=== PATIENT | male | born 1995 | race Two or more races ===

== ENCOUNTER 2016-11-11 08:00 | Outpatient (CLI) | payer OTHER | END 2016-11-11 08:01 | disposition home or self-care (01) | DX: F31.2 Bipolar disorder, current episode manic severe with psychotic features (principal); F41.9 Anxiety disorder, unspecified; G47.00 Insomnia, unspecified; E55.9 Vitamin D deficiency, unspecified ==

== ENCOUNTER 2017-04-21 10:15 | Outpatient (CLI) | payer OTHER ==
[2017-04-21 14:12] LABS: BASOPHILS # (AUTO) 0.1 10^3/uL (0.0-0.1); BASOPHILS % (AUTO) 0.6 %; EOSINOPHILS # (AUTO) 0.1 10^3/uL (0.0-0.7); EOSINOPHILS % (AUTO) 1.4 %; HCT - HEMATOCRIT 45.1 % (42.0-52.0); HGB - HEMOGLOBIN 15.5 g/dL (14.0-18.0); LYMPHOCYTES # (AUTO) 2.8 10^3/uL (1.5-3.5); LYMPHOCYTES % (AUTO) 28.9 %; MEAN CORPUSCULAR HEMOGLOBIN 30.3 pg (27.0-31.0); MEAN CORPUSCULAR HGB CONC 34.3 g/dL (32.0-36.0); MEAN CORPUSCULAR VOLUME 88.3 fL (80.0-94.0); MONOCYTES # (AUTO) 0.5 10^3/uL (0.0-1.0); MONOCYTES % (AUTO) 5.4 %; NEUTROPHILS # (AUTO) 6.1 10^3/uL (1.5-6.6); NEUTROPHILS % (AUTO) 63.7 %; NUCLEATED RED BLOOD CELLS AUTO 0.1 /100WBC; RED CELL DISTRIBUTION WIDTH 12.4 % (12.0-15.0); UNCORRECTED WHITE BLOOD COUNT 9.5 x10^3/uL; WHITE BLOOD COUNT 9.5 x10^3/uL (4.8-10.8)
[2017-04-21 14:32] LABS: THYROID STIMULATING HORMONE 2.43 uIU/mL (0.34-5.60)
[2017-04-21 14:56] LABS: BILIRUBIN,TOTAL 0.5 mg/dL (0.2-1.0); BUN - BLOOD UREA NITROGEN 9 mg/dL (6-20); CALCIUM 9.6 mg/dL (8.5-10.3); CARBON DIOXIDE - CO2 29 mmol/L (21-32); CHLORIDE 99 mmol/L (101-111); CHOL/HDL RATIO 4.7 (<5.0); CHOLESTEROL 215 mg/dL; CREATININE 0.9 mg/dL (0.6-1.2); GFR - MDRD 107 (>89); GLUCOSE 110 mg/dL (70-100); HDL CHOLESTEROL 46 mg/dL; LDL/HDL RATIO 2.5 (<3.6); POTASSIUM 4.1 mmol/L (3.5-5.0); SODIUM 138 mmol/L (135-145); TOTAL PROTEIN 8.7 g/dL (6.7-8.2); TRIGLYCERIDES 260 mg/dL; VLDL CHOLESTEROL 52 mg/dL
== END 2017-04-21 10:16 | disposition home or self-care (01) ==
LOC: LAB.WCP 10:15
PROVIDERS: ATTEND Psychiatry & Neurology Psychiatry
DX: F31.2 Bipolar disorder, current episode manic severe with psychotic features (principal); F41.9 Anxiety disorder, unspecified; G47.00 Insomnia, unspecified
CPT/HCPCS: 36415; 80050; 80061; 80164; 84439

== ENCOUNTER 2017-11-04 09:47 | Outpatient (CLI) | payer MEDICAID, OTHER ==
[2017-11-04 13:21] LABS: ALBUMIN 4.3 g/dL (3.2-5.5); ALBUMIN/GLOBULIN RATIO 1.1 (1.0-2.2); ALKALINE PHOSPHATASE 50 IU/L (42-121); ALT ALANINE AMINOTRANSFERASE 31 IU/L (10-60); AST ASPARTATE AMINOTRANSFERASE 31 IU/L (10-42); BILIRUBIN,TOTAL 0.5 mg/dL (0.2-1.0); BUN - BLOOD UREA NITROGEN 7 mg/dL (6-20); CALCIUM 9.1 mg/dL (8.5-10.3); CARBON DIOXIDE - CO2 28 mmol/L (21-32); CHLORIDE 100 mmol/L (101-111); GFR - MDRD 94 (>89); GLUCOSE 102 mg/dL (70-100); SODIUM 136 mmol/L (135-145); TOTAL PROTEIN 8.3 g/dL (6.7-8.2); VALPROIC ACID (DEPAKOTE) 53.8 ug/mL
[2017-11-04 13:31] LABS: HB2 TOTAL 16.3 g/dL; HEMOGLOBIN A1C 0.56 g/dL; HEMOGLOBIN A1C % 5.3 % (4.6-6.2)
== END 2017-11-04 09:48 | disposition home or self-care (01) ==
LOC: LAB.WCP 09:47
PROVIDERS: ATTEND Psychiatry & Neurology Psychiatry
DX: F31.9 Bipolar disorder, unspecified (principal); F41.9 Anxiety disorder, unspecified; G47.00 Insomnia, unspecified
CPT/HCPCS: 36415; 80053; 80164; 83036

== ENCOUNTER 2018-03-25 19:40 | Emergency (ER) | payer MEDICAID ==
[2018-03-25 19:52] LABS: MUDS CUTOFF CONCENTRATIONS CUTOFF CONC BELOW:
[2018-03-25 19:58] LABS: BILIRUBIN,URINE NEGATIVE (NEGATIVE); GLUCOSE, URINE (UA) NEGATIVE (NEGATIVE); KETONES,URINE (UA) NEGATIVE (NEGATIVE); LEUKOCYTE ESTERASE, URINE NEGATIVE (NEGATIVE); NITRITE,URINE NEGATIVE (NEGATIVE); OCCULT BLOOD,URINE NEGATIVE (NEGATIVE); PROTEIN,URINE 30 mg/dL (NEGATIVE); UROBILINOGEN,URINE 0.2 (NORMAL) E.U./dL (NORMAL)
[2018-03-25 20:01] LABS: CLARITY,URINE CLEAR (CLEAR)
[2018-03-25 20:09] LABS: BACTERIA,URINE None Seen /HPF (None Seen); MUCUS,URINE Marked Strands; RBC,URINE None Seen /HPF (0-5); SQUAMOUS EPITHELIAL CELL,UR NONE SEEN (<= Few)
[2018-03-25 20:10] LABS: AMPHETAMINE SCREEN,URINE NEGATIVE (NEGATIVE); BENZODIAZEPINES SCREEN, URINE NEGATIVE (NEGATIVE); COCAINE SCREEN URINE NEGATIVE (NEGATIVE); METHADONE SCREEN, URINE NEGATIVE (NEGATIVE); METHAMPHETAMINES SCREEN, URINE NEGATIVE (NEGATIVE); OPIATE SCREEN, URINE NEGATIVE (NEGATIVE); OXYCODONE SCREEN, URINE NEGATIVE (NEGATIVE); PROPOXYPHENE SCREEN, URINE NEGATIVE (NEGATIVE); TRICYCLIC ANTIDEPRESSANT,URINE NEGATIVE (NEGATIVE)
[2018-03-25 20:34] LABS: ALBUMIN 4.2 g/dL (3.2-5.5); ALBUMIN/GLOBULIN RATIO 1.1 (1.0-2.2); ALKALINE PHOSPHATASE 54 IU/L (42-121); ALT ALANINE AMINOTRANSFERASE 42 IU/L (10-60); AST ASPARTATE AMINOTRANSFERASE 57 IU/L (10-42); BILIRUBIN,TOTAL 0.5 mg/dL (0.2-1.0); BUN - BLOOD UREA NITROGEN 16 mg/dL (6-20); CALCIUM 9.4 mg/dL (8.5-10.3); CARBON DIOXIDE - CO2 23 mmol/L (21-32); CHLORIDE 106 mmol/L (101-111); CREATININE 0.9 mg/dL (0.6-1.2); GFR - MDRD 106 (>89); GLUCOSE 98 mg/dL (70-100); LIPASE 83 U/L (22-51); SALICYLATE < 6.0 mg/dL; SODIUM 140 mmol/L (135-145); TOTAL PROTEIN 8.2 g/dL (6.7-8.2)
[2018-03-25 20:43] LABS: ACETAMINOPHEN < 10 ug/mL (10-30)
--- NOTE | 2018-03-25 20:49 | ED Physician Documentation ---
PD HPI MHE - Stated complaint Stated Complaint: EVAL - Chief complaint Chief Complaint: MHE - History obtained from History obtained from: Police - History of Present Illness Primary symptom: Psychosis, Off meds, Medical clearance Timing - onset: Chronic Similar symptoms before: Work up / diagnostics, Treatment Recently seen: Not recently seen - Additional information Additional information: Patient is a 22 year old male with a history of multiple medical conditions including bipolar, ocd, adhd, diabetes who was brought in by the assisted for a medical clearance for inpatient placement. Patient denied any physical complaints at this time. Review of Systems Unable to obtain: Uncooperative PD PAST MEDICAL HISTORY - Past Medical History Cardiovascular: High cholesterol Respiratory: None Endocrine/Autoimmune: None GI: None : None HEENT: None Psych: Depression, Anxiety, Bipolar disorder, Panic attacks, ADD/ADHD, Obsessive compulsive disorder Musculoskeletal: None Derm: None - Past Surgical History Past Surgical History: No - Present Medications Home Medications: Ambulatory Orders Medication Instructions Recorded Confirmed Divalproex Sodium [Depakote ER] 250 mg PO DAILY 03/06/15 03/10/15 Zolpidem [Ambien] 5 mg ORAL PRN 03/10/15 03/10/15 - Allergies Allergies/Adverse Reactions: Allergies Allergy/AdvReac Type Severity Reaction Status Date / Time amoxicillin [Amoxicillin] Allergy Severe Respiratory Verified 03/10/15 18:38 - Social History Does the pt smoke?: No Smoking Status: Never smoker Does the pt drink ETOH?: No Does the pt have substance abuse?: No - Immunizations Immunizations are current?: Yes - POLST Patient has POLST: No PD ED PE NORMAL - Vitals Vital signs reviewed: Yes - General General: No acute distress, Well developed/nourished - HEENT HEENT: Atraumatic, PERRL - Cardiac Cardiac: RRR - Respiratory Respiratory: No respiratory distress - Abdomen Abdomen: Soft - Derm Derm: Normal color, Warm and dry - Extremities Extremities: No deformity - Neuro Neuro: No motor deficit, Normal speech Eye Opening: Spontaneous PD ED PE EXPANDED - Psych Psych: Agitated, Combative, Pressured speech Results - Vitals Vitals: Vital Signs - 24 hr 03/25/18 03/25/18 03/26/18 19:50 22:19 01:27 Temperature 36.4 C L 36.9 C 36.5 C Heart Rate 113 H 96 88 Respiratory 20 16 20 Rate Blood Pressure 125/86 H 122/62 143/74 H O2 Saturation 95 97 95 Oxygen O2 Source Room air - EKG (time done) 2019 Rate: Rate (enter#) (105) Rhythm: Sinus tachycardia [place]: Normal Ischemia: ST elevation c/w repol Compare to prior EKG: Old EKG unavailable - Labs Labs: Laboratory Tests 03/25/18 03/25/18 03/25/18 19:51 20:13 22:18 WBC 10.8 RBC 4.63 L Hgb 14.0 Hct 41.6 L MCV 90.0 MCH 30.2 MCHC 33.6 RDW 13.0 Plt Count 293 MPV 6.9 L Neut # (Auto) 7.4 H Lymph # (Auto) 2.2 [place] # (Auto) 0.9 Eos # (Auto) 0.2 Baso # (Auto) 0.1 Absolute Nucleated RBC 0.00 Nucleated RBC % 0.0 Sodium 140 Potassium 3.8 Chloride 106 Carbon Dioxide 23 Anion Gap 11.0 BUN 16 Creatinine 0.9 Estimated GFR (MDRD) 106 Glucose 98 Calcium 9.4 Total Bilirubin 0.5 AST 57 H ALT 42 Alkaline Phosphatase 54 Total Protein 8.2 Albumin 4.2 Globulin 4.0 Albumin/Globulin Ratio 1.1 Lipase 83 H Urine Color YELLOW Urine Clarity CLEAR Urine pH 6.0 Ur Specific [place] 1.025 Urine Protein 30 H Urine Glucose (UA) NEGATIVE Urine Ketones NEGATIVE Urine Occult Blood NEGATIVE Urine Nitrite NEGATIVE Urine Bilirubin NEGATIVE Urine Urobilinogen 0.2 (NORMAL) Ur Leukocyte Esterase NEGATIVE Urine RBC None Seen Urine WBC 0-3 Ur Squamous Epith Cells NONE SEEN Urine Bacteria None Seen Urine Mucus Marked Strands Ur Microscopic Review INDICATED Urine Culture Comments NOT INDICATED Salicylates < 6.0 Urine Opiates Screen NEGATIVE Ur Oxycodone Screen NEGATIVE Urine Methadone Screen NEGATIVE Ur Propoxyphene Screen NEGATIVE Acetaminophen < 10 L Ur Barbiturates Screen NEGATIVE Ur Tricyclics Screen NEGATIVE Ur Phencyclidine Scrn NEGATIVE Ur Amphetamine Screen NEGATIVE U Methamphetamines Scrn NEGATIVE U Benzodiazepines Scrn NEGATIVE Urine Cocaine Screen NEGATIVE U Cannabinoids Screen NEGATIVE Ethyl Alcohol < 5.0 PD MEDICAL DECISION MAKING - ED course Complexity details: reviewed old records, reviewed results, re-evaluated patient , considered differential ED course: patient was seen and examined at bedside. labs were drawn and ekg was performed. ekg was consistent with benign early repol with no concerning abnormalities. patient's blood work was within normal limits. Patient was medically clear for inpatient psychiatry. while awaiting placement and transfer patient became agitated and required sedation with zyprexa as he was a risk to himself and others. Patient was accepted by [facility] and arrangements were made for transfer. The zyprexa helped the patient for awhile but his agitation returned and patient was treated with additional haldol, and eventually with ativan for the transfer. patient was transferred in stable condition. - Sepsis Event Vital Signs: Vital Signs - 24 hr 03/25/18 03/25/18 03/26/18 19:50 22:19 01:27 Temperature 36.4 C L 36.9 C 36.5 C Heart Rate 113 H 96 88 Respiratory 20 16 20 Rate Blood Pressure 125/86 H 122/62 143/74 H O2 Saturation 95 97 95 Oxygen O2 Source Room air Departure - Departure Disposition: 65 Psych Hosp/Unit DC/Xfer Clinical Impression: Psychosis, Bipolar disorder Condition: Stable
[2018-03-25] MEDS ORDERED: OLANZapine 10 MG VIAL IM STA (21:28)
[2018-03-25 22:21] LABS: BASOPHILS # (AUTO) 0.1 10^3/uL (0.0-0.1); BASOPHILS % (AUTO) 0.9 %; EOSINOPHILS # (AUTO) 0.2 10^3/uL (0.0-0.7); EOSINOPHILS % (AUTO) 1.7 %; LYMPHOCYTES # (AUTO) 2.2 10^3/uL (1.5-3.5); LYMPHOCYTES % (AUTO) 20.5 %; MEAN CORPUSCULAR HEMOGLOBIN 30.2 pg (27.0-31.0); MEAN CORPUSCULAR HGB CONC 33.6 g/dL (32.0-36.0); MEAN PLATELET VOLUME 6.9 fL (7.4-11.4); MONOCYTES # (AUTO) 0.9 10^3/uL (0.0-1.0); NEUTROPHILS # (AUTO) 7.4 10^3/uL (1.5-6.6); NEUTROPHILS % (AUTO) 68.9 %; PLT - PLATELET COUNT 293 10^3/uL (130-450); RED BLOOD COUNT 4.63 10^6/uL (4.70-6.10); WHITE BLOOD COUNT 10.8 x10^3/uL (4.8-10.8)
[2018-03-25] MEDS ORDERED: HALOPERIDOL 5 MG/ML VIAL IM STA (23:33)
[2018-03-26 01:28] VITALS: BP 143/74
[2018-03-26] MEDS ORDERED: LORazepam 0.5 MG TABLET PO STA (01:48)
== END 2018-03-26 02:31 ==
LOC: ED 19:40
DX: F29 Unspecified psychosis not due to a substance or known physiological condition (principal); F31.9 Bipolar disorder, unspecified; Z91.14 Patient's other noncompliance with medication regimen; R45.1 Restlessness and agitation; R00.0 Tachycardia, unspecified
CPT/HCPCS: 36415; 80053; 80306; 80307; 80320; 80329; 81001; 83690; 85025; 96372; 99283; 99284; A9270; 81003; 87086

== ENCOUNTER 2018-04-17 08:00 | Outpatient (CLI) | payer MEDICAID ==
[2018-04-17 12:49] LABS: BASOPHILS % (AUTO) 0.4 %; EOSINOPHILS # (AUTO) 0.3 10^3/uL (0.0-0.7); EOSINOPHILS % (AUTO) 4.1 %; HGB - HEMOGLOBIN 14.3 g/dL (14.0-18.0); LYMPHOCYTES # (AUTO) 2.6 10^3/uL (1.5-3.5); LYMPHOCYTES % (AUTO) 31.6 %; MEAN CORPUSCULAR HEMOGLOBIN 30.7 pg (27.0-31.0); MEAN CORPUSCULAR HGB CONC 33.8 g/dL (32.0-36.0); MEAN CORPUSCULAR VOLUME 90.6 fL (80.0-94.0); MEAN PLATELET VOLUME 8.2 fL (7.4-11.4); MONOCYTES # (AUTO) 0.6 10^3/uL (0.0-1.0); MONOCYTES % (AUTO) 7.7 %; NEUTROPHILS # (AUTO) 4.6 10^3/uL (1.5-6.6); NEUTROPHILS % (AUTO) 56.2 %; PLT - PLATELET COUNT 306 10^3/uL (130-450); RED BLOOD COUNT 4.67 10^6/uL (4.70-6.10); RED CELL DISTRIBUTION WIDTH 13.1 % (12.0-15.0); WHITE BLOOD COUNT 8.1 x10^3/uL (4.8-10.8)
[2018-04-17 13:15] LABS: ALBUMIN 3.7 g/dL (3.2-5.5); ALBUMIN/GLOBULIN RATIO 1.1 (1.0-2.2); ALKALINE PHOSPHATASE 52 IU/L (42-121); ALT ALANINE AMINOTRANSFERASE 32 IU/L (10-60); AST ASPARTATE AMINOTRANSFERASE 29 IU/L (10-42); BILIRUBIN,TOTAL 0.6 mg/dL (0.2-1.0); BUN - BLOOD UREA NITROGEN 8 mg/dL (6-20); CALCIUM 8.7 mg/dL (8.5-10.3); CARBON DIOXIDE - CO2 29 mmol/L (21-32); CHLORIDE 100 mmol/L (101-111); CHOL/HDL RATIO 3.4 (<5.0); CHOLESTEROL 188 mg/dL; CREATININE 0.8 mg/dL (0.6-1.2); GFR - MDRD 121 (>89); GLUCOSE 99 mg/dL (70-100); HDL CHOLESTEROL 56 mg/dL; LDL CHOLESTEROL,CALCULATED 113 mg/dL; SODIUM 137 mmol/L (135-145); TOTAL PROTEIN 7.1 g/dL (6.7-8.2); VLDL CHOLESTEROL 19 mg/dL
== END 2018-04-17 08:01 | disposition home or self-care (01) ==
LOC: LAB.N 08:00
PROVIDERS: ATTEND Physician Assistant Medical
DX: E78.70 Disorder of bile acid and cholesterol metabolism, unspecified (principal); F31.10 Bipolar disorder, current episode manic without psychotic features, unspecified
CPT/HCPCS: 36415; 80053; 80061; 83721; 84443; 85025

== ENCOUNTER 2020-08-01 08:00 | Outpatient (CLI) | payer MEDICAID ==
[2020-08-01 12:38] LABS: BASOPHILS # (AUTO) 0.1 10^3/uL (0.0-0.1); BASOPHILS % (AUTO) 0.6 %; EOSINOPHILS # (AUTO) 0.3 10^3/uL (0.0-0.7); HGB - HEMOGLOBIN 15.5 g/dL (14.0-18.0); LYMPHOCYTES # (AUTO) 3.5 10^3/uL (1.5-3.5); LYMPHOCYTES % (AUTO) 40.9 %; MEAN CORPUSCULAR HEMOGLOBIN 29.2 pg (27.0-31.0); MEAN CORPUSCULAR HGB CONC 33.3 g/dL (32.0-36.0); MEAN CORPUSCULAR VOLUME 87.7 fL (80.0-94.0); MEAN PLATELET VOLUME 10.3 fL (7.4-11.4); MONOCYTES # (AUTO) 0.6 10^3/uL (0.0-1.0); MONOCYTES % (AUTO) 6.5 %; NEUTROPHILS # (AUTO) 4.1 10^3/uL (1.5-6.6); NEUTROPHILS % (AUTO) 48.5 %; PLT - PLATELET COUNT 293 10^3/uL (130-450); RED CELL DISTRIBUTION WIDTH 11.9 % (12.0-15.0); WHITE BLOOD COUNT 8.4 x10^3/uL (4.8-10.8)
[2020-08-01 13:48] LABS: ALBUMIN/GLOBULIN RATIO 0.9 (1.0-2.2); ALKALINE PHOSPHATASE 69 IU/L (42-121); ALT ALANINE AMINOTRANSFERASE 46 IU/L (10-60); AST ASPARTATE AMINOTRANSFERASE 31 IU/L (10-42); BILIRUBIN,TOTAL 0.6 mg/dL (0.2-1.0); BUN - BLOOD UREA NITROGEN 7 mg/dL (6-20); CALCIUM 9.5 mg/dL (8.5-10.3); CARBON DIOXIDE - CO2 25 mmol/L (21-32); CHLORIDE 98 mmol/L (101-111); CHOL/HDL RATIO 6.4 (<5.0); CHOLESTEROL 289 mg/dL; CREATININE 0.7 mg/dL (0.6-1.2); GLUCOSE 269 mg/dL (70-100); HDL CHOLESTEROL 45 mg/dL; TOTAL PROTEIN 8.4 g/dL (6.7-8.2); VALPROIC ACID (DEPAKOTE) 57.3 ug/mL
[2020-08-01 15:17] LABS: LDL CHOLESTEROL,DIRECT 184 mg/dL; LDLD/HDL RATIO 4.1 (<3.6)
== END 2020-08-01 23:59 ==
LOC: LAB.WCP 08:00
PROVIDERS: ATTEND Psychiatry & Neurology Psychiatry
DX: F31.2 Bipolar disorder, current episode manic severe with psychotic features (principal)
CPT/HCPCS: 36415; 80053; 80061; 80164; 83721; 85025

== ENCOUNTER 2023-11-09 23:41 | Outpatient (CLI) | payer MEDICAID, OTHER | END 2023-11-09 23:42 | disposition short-term general hospital (02) | LOC: EMS 23:41 | DX: S09.90XA Unspecified injury of head, initial encounter (principal); V48.5XXA Car driver injured in noncollision transport accident in traffic accident, initial encounter; Y93.89 Activity, other specified; Y92.410 Unspecified street and highway as the place of occurrence of the external cause | CPT/HCPCS: A0425; A0429 ==

== ENCOUNTER 2023-11-11 16:28 | Emergency (ER) | payer MEDICAID ==
--- NOTE | 2023-11-11 16:39 | ED Physician Documentation ---
PD HPI MHE - Stated complaint Stated Complaint: SI - History obtained from History obtained from: Police - Additional information Additional information: 27-year-old gentleman with mental health history is brought in by [employer] deputies. He was booked last night and has been psychotic in [facility] today. He was released by the director of [facility] today for a DCR evaluation and the DCR brought him here on an LUISA for medical clearance. Of note it sounds like he was at [facility] yesterday and had mild rhabdomyolysis. Patient is unable to give any history to me on initial evaluation, just yelling, agitated, trying to hit staff, and stating "they are going to kill me." PD PAST MEDICAL HISTORY - Past Medical History Cardiovascular: High cholesterol Respiratory: None Endocrine/Autoimmune: None GI: None : None HEENT: None Psych: Depression, Anxiety, Bipolar disorder, Panic attacks, ADD/ADHD, Obsessive compulsive disorder Musculoskeletal: None Derm: None - Past Surgical History Past Surgical History: No - Present Medications Home Medications: Ambulatory Orders Medication Instructions Recorded Confirmed Divalproex Sodium [Depakote ER] 250 mg PO DAILY 03/06/15 03/10/15 Zolpidem [Ambien] 5 mg ORAL PRN 03/10/15 03/10/15 - Allergies Allergies/Adverse Reactions: Allergies Allergy/AdvReac Type Severity Reaction Status Date / Time amoxicillin [Amoxicillin] Allergy Severe Respiratory Verified 11/11/23 16:35 - Social History Does the pt smoke?: No Smoking Status: Never smoker Does the pt drink ETOH?: No Does the pt have substance abuse?: No - Immunizations Immunizations are current?: Yes - POLST Patient has POLST: No PD ED PE NORMAL - Vitals Vital signs reviewed: Yes - General General: Other (Orientation is unclear, he is agitated and aggressive trying to hit staff. Multiple [employer] deputies are required to help with restraint.) - Cardiac Cardiac: RRR, No murmur - Respiratory Respiratory: No respiratory distress, Clear bilaterally - Abdomen Abdomen: Non tender Results - Vitals Vitals: Vital Signs - 24 hr 11/11/23 11/11/23 11/11/23 16:35 16:41 16:52 Temperature 36.6 C 36.8 C Heart Rate 123 H 123 H 115 H Respiratory 18 18 17 Rate Blood Pressure 165/116 H 165/116 H 158/108 H O2 Saturation 98 98 96 If not protocol : Oxygen Flow, liters/minute 11/11/23 11/11/23 11/11/23 17:05 17:20 17:35 Temperature Heart Rate 119 H 104 H 104 H Respiratory 20 18 18 Rate Blood Pressure 157/111 H 128/84 H 109/63 O2 Saturation 96 93 93 If not protocol 96 : Oxygen Flow, liters/minute 11/11/23 11/11/23 11/11/23 17:45 18:15 20:15 Temperature 36.8 C Heart Rate 100 102 H 96 Respiratory 19 19 18 Rate Blood Pressure 127/87 H 111/70 111/68 O2 Saturation 92 92 94 If not protocol : Oxygen Flow, liters/minute 11/11/23 11/11/23 11/11/23 21:22 21:34 21:48 Temperature Heart Rate 100 111 H 94 Respiratory 18 18 18 Rate Blood Pressure 134/90 H 176/117 H 165/112 H O2 Saturation 100 100 97 If not protocol : Oxygen Flow, liters/minute 11/11/23 22:16 Temperature Heart Rate 94 Respiratory 18 Rate Blood Pressure 146/100 H O2 Saturation 97 If not protocol : Oxygen Flow, liters/minute Oxygen O2 Source Room air - EKG (time done) 1716 EKG releavant findings:: EKG personally interpreted by author of this note. Relevant findings are: Rate: Rate (enter#) (107) Rhythm: NSR Intervals: Normal [place]. No: Prolonged QT QRS: Normal Ischemia: Normal ST segments - Labs Labs: Laboratory Tests 11/11/23 11/11/23 11/11/23 16:57 16:57 16:57 WBC 9.9 RBC 5.16 Hgb 14.8 Hct 46.0 MCV 89.1 MCH 28.7 MCHC 32.2 RDW 11.9 L Plt Count 311 MPV 9.7 Neut # (Auto) 6.6 Lymph # (Auto) 2.4 [place] # (Auto) 0.8 Eos # (Auto) 0.1 Baso # (Auto) 0.1 Absolute Nucleated RBC 0.00 Nucleated RBC % 0.0 Sodium 141 Potassium 3.5 Chloride 102 Carbon Dioxide 21 Anion Gap 18.0 H BUN 10 Creatinine 0.9 Estimated GFR (MDRD) 101 Glucose 342 H Calcium 9.7 Magnesium 1.8 Total Bilirubin 0.6 AST 32 ALT 26 Alkaline Phosphatase 64 Total Creatine Kinase 2665 H* Total Protein 7.9 Albumin 4.2 Globulin 3.7 Albumin/Globulin Ratio 1.1 Lipase 27 TSH 1.55 Urine Color Urine Clarity Urine pH Ur Specific [place] Urine Protein Urine Glucose (UA) Urine Ketones Urine Occult Blood Urine Nitrite Urine Bilirubin Urine Urobilinogen Ur Leukocyte Esterase Urine RBC Urine WBC Ur Squamous Epith Cells Urine Bacteria Urine Casts Ur Microscopic Review Urine Culture Comments Last Dose Date UNKNOWN Last Dose Time UNKNOWN Salicylates < 1.5 Urine Opiates Screen Ur Buprenorphine Scrn Ur Oxycodone Screen Urine Methadone Screen Acetaminophen 0.1 Ur Barbiturates Screen Valproic Acid 39.4 Ur Tricyclics Screen Ur Phencyclidine Scrn Ur Amphetamine Screen U Methamphetamines Scrn U Benzodiazepines Scrn Urine Cocaine Screen U Cannabinoids Screen Ur Drug Screen Comment Ethyl Alcohol < 10.0 SARS-CoV-2 (PCR) 11/11/23 11/11/23 17:11 17:11 WBC RBC Hgb Hct MCV MCH MCHC RDW Plt Count MPV Neut # (Auto) Lymph # (Auto) [place] # (Auto) Eos # (Auto) Baso # (Auto) Absolute Nucleated RBC Nucleated RBC % Sodium Potassium Chloride Carbon Dioxide Anion Gap BUN Creatinine Estimated GFR (MDRD) Glucose Calcium Magnesium Total Bilirubin AST ALT Alkaline Phosphatase Total Creatine Kinase Total Protein Albumin Globulin Albumin/Globulin Ratio Lipase TSH Urine Color YELLOW Urine Clarity CLEAR Urine pH 6.0 Ur Specific [place] 1.020 Urine Protein 100 H Urine Glucose (UA) >=1000 H Urine Ketones 15 H Urine Occult Blood TRACE-INTA Urine Nitrite NEGATIVE Urine Bilirubin NEGATIVE Urine Urobilinogen 0.2 (NORMAL) Ur Leukocyte Esterase NEGATIVE Urine RBC None Seen Urine WBC 0-3 Ur Squamous Epith Cells RARE Squamous Urine Bacteria Few Urine Casts 0-2 Hyaline Casts Ur Microscopic Review INDICATED Urine Culture Comments NOT INDICATED Last Dose Date Last Dose Time Salicylates Urine Opiates Screen NEGATIVE Ur Buprenorphine Scrn NEGATIVE Ur Oxycodone Screen NEGATIVE Urine Methadone Screen NEGATIVE Acetaminophen Ur Barbiturates Screen NEGATIVE Valproic Acid Ur Tricyclics Screen NEGATIVE Ur Phencyclidine Scrn NEGATIVE Ur Amphetamine Screen NEGATIVE U Methamphetamines Scrn NEGATIVE U Benzodiazepines Scrn POSITIVE H Urine Cocaine Screen NEGATIVE U Cannabinoids Screen NEGATIVE Ur Drug Screen Comment CUTOFF CONC BELOW: Ethyl Alcohol SARS-CoV-2 (PCR) NOT DETECTED PD Medical Decision Making - ED course ED course: 27-year-old gentleman presents with psychosis and dangerous behavior. He did require both physical and chemical restraint after arrival. After which she was calm and cooperative. Workup in the emergency department demonstrates mild rhabdomyolysis, normal CBC, negative toxicology testing except for positive benzodiazepines and negative COVID testing. Seen by DCR Clara who would detain him, but despite the relatively low level of his CK no psychiatric facility will consider him at this time so he is boarding in the emergency department after DCR walk away with plan to trend his CK levels and redispatch. Given the need to get his relatively low CK down for an appropriate disposition, we did order an IV and IV fluids. When RN went to do this he amped up and did require repeat chemical restraint but the IV was successfully placed after that. Care to overnight emergency physician pending repeat labs in the morning and redispatch the DCR. Departure - Departure Clinical Impression: Elevated CK Psychosis Qualifiers: Psychosis type: unspecified psychosis type Qualified Code(s): F29 - Unspecified psychosis not due to a substance or known physiological condition Condition: Stable
[2023-11-11] MEDS: OLANZapine 10 MG VIAL IM STA (16:41)
[2023-11-11] MEDS: KETAMINE 500 MG/10 ML VIAL IM STA ×2 (16:41→21:15)
--- NOTE | 2023-11-11 17:02 | ED Physician Documentation ---
Restraint [id number] - Immediate Situation Face to Face Evaluation Date: 11/11/23 Face to Face Evaluation Time: 17:02 Restraint Classification: Violent, chemical w/ physical hold (This [id number] is for both the chemical and violent restraints placed within minutes of each other as this is a single episode of restraint.) - Patient's Reaction & Behaviors Safety: Unable to Follow Commands Verbal: Demanding Harm: Actual harm to others Physical: Aggressive behavior Other: Disruption of therapy - Behavioral Condition Attitude: Indifferent Behavior: Agitated Orientation: Non-responsive Mood: Depressed, Angry, Anxious - Evaluation Pertinent History/Illicit Drugs/Medications/Results: 27-year-old gentleman with psychosis presents for DCR LUISA and has been fighting with staff.
[2023-11-11 17:05] LABS: BASOPHILS # (AUTO) 0.1 10^3/uL (0.0-0.1); BASOPHILS % (AUTO) 0.9 %; EOSINOPHILS # (AUTO) 0.1 10^3/uL (0.0-0.7); EOSINOPHILS % (AUTO) 1.1 %; HGB - HEMOGLOBIN 14.8 g/dL (14.0-18.0); LYMPHOCYTES # (AUTO) 2.4 10^3/uL (1.5-3.5); LYMPHOCYTES % (AUTO) 23.8 %; MEAN CORPUSCULAR HEMOGLOBIN 28.7 pg (27.0-31.0); MEAN CORPUSCULAR HGB CONC 32.2 g/dL (32.0-36.0); MEAN CORPUSCULAR VOLUME 89.1 fL (80.0-94.0); MEAN PLATELET VOLUME 9.7 fL (7.4-11.4); MONOCYTES # (AUTO) 0.8 10^3/uL (0.0-1.0); NEUTROPHILS # (AUTO) 6.6 10^3/uL (1.5-6.6); PLT - PLATELET COUNT 311 10^3/uL (130-450); RED BLOOD COUNT 5.16 10^6/uL (4.70-6.10); RED CELL DISTRIBUTION WIDTH 11.9 % (12.0-15.0); WHITE BLOOD COUNT 9.9 x10^3/uL (4.8-10.8)
[2023-11-11 17:13] LABS: MAGNESIUM 1.8 mg/dL (1.7-2.3)
[2023-11-11 17:19] LABS: ACETAMINOPHEN 0.1 ug/mL; ETOH - ETHANOL < 10.0 mg/dL; LIPASE 27 U/L (11-82)
[2023-11-11 17:23] LABS: VALPROIC ACID (DEPAKOTE) 39.4 ug/mL
[2023-11-11 17:27] LABS: ALBUMIN 4.2 g/dL (3.2-5.5); ALBUMIN/GLOBULIN RATIO 1.1 (1.0-2.2); ALKALINE PHOSPHATASE 64 IU/L (42-121); ALT ALANINE AMINOTRANSFERASE 26 IU/L (10-60); AST ASPARTATE AMINOTRANSFERASE 32 IU/L (10-42); BILIRUBIN,TOTAL 0.6 mg/dL (0.2-1.0); BUN - BLOOD UREA NITROGEN 10 mg/dL (6-20); CALCIUM 9.7 mg/dL (8.5-10.3); CARBON DIOXIDE - CO2 21 mmol/L (21-32); CHLORIDE 102 mmol/L (101-111); CREATININE 0.9 mg/dL (0.6-1.3); GFR - MDRD 101 (>89); GLUCOSE 342 mg/dL (74-104); POTASSIUM 3.5 mmol/L (3.5-4.5); SALICYLATE < 1.5 mg/dL; SODIUM 141 mmol/L (135-145); TOTAL PROTEIN 7.9 g/dL (6.4-8.9)
[2023-11-11 17:32] LABS: THYROID STIMULATING HORMONE 1.55 uIU/mL (0.34-5.60)
[2023-11-11 17:32] LABS: BILIRUBIN,URINE NEGATIVE (NEGATIVE); GLUCOSE, URINE (UA) >=1000 mg/dL (NEGATIVE); KETONES,URINE (UA) 15 mg/dL (NEGATIVE); LEUKOCYTE ESTERASE, URINE NEGATIVE (NEGATIVE); NITRITE,URINE NEGATIVE (NEGATIVE); OCCULT BLOOD,URINE TRACE-INTA (NEGATIVE); PROTEIN,URINE 100 mg/dL (NEGATIVE); UROBILINOGEN,URINE 0.2 (NORMAL) E.U./dL (NORMAL)
[2023-11-11 17:40] LABS: CLARITY,URINE CLEAR (CLEAR)
[2023-11-11 17:44] LABS: AMPHETAMINE SCREEN,URINE NEGATIVE (NEGATIVE); BARBITURATE SCREEN,UR NEGATIVE (NEGATIVE); BENZODIAZEPINES SCREEN, URINE POSITIVE (NEGATIVE); BUPRENORPHINE SCREEN, URINE NEGATIVE (NEGATIVE); COCAINE SCREEN URINE NEGATIVE (NEGATIVE); METHADONE SCREEN, URINE NEGATIVE (NEGATIVE); METHAMPHETAMINES SCREEN, URINE NEGATIVE (NEGATIVE); OPIATE SCREEN, URINE NEGATIVE (NEGATIVE); OXYCODONE SCREEN, URINE NEGATIVE (NEGATIVE); THC CANNABINOID SCREEN, URINE NEGATIVE (NEGATIVE); TRICYCLIC ANTIDEPRESSANT,URINE NEGATIVE (NEGATIVE)
[2023-11-11 18:02] LABS: RBC,URINE None Seen /HPF (0-5); WBC,URINE 0-3 /HPF (0-3)
[2023-11-11 18:03] LABS: BACTERIA,URINE Few /HPF (None Seen); CASTS, URINE 0-2 Hyaline Casts /LPF; SQUAMOUS EPITHELIAL CELL,UR RARE Squamous (<= Few)
[2023-11-11 18:21] LABS: CK- CREATINE KINASE 2665 IU/L (30-223)
--- NOTE | 2023-11-11 21:26 | ED Physician Documentation ---
Restraint [id number] - Immediate Situation Face to Face Evaluation Date: 11/11/23 Face to Face Evaluation Time: 21:25 Restraint Classification: Violent, chemical w/ physical hold - Patient's Reaction & Behaviors Safety: Non-compliant Verbal: Crying/Tearful, Demanding Harm: Actual harm to others Physical: Aggressive behavior - Behavioral Condition Attitude: Indifferent Behavior: Agitated Orientation: Non-responsive Mood: Angry - Evaluation Current Medical Condition Relating to Need for Restraint: At this point it became clear that he would need an IV for IV fluids for treatment of his mild rhabdomyolysis. Even though his CK is not very high we will need to improve it to get him detained to a facility and at this point the DCR is down to walk away with plan to redispatch tomorrow morning. He was still too psychotic for the nurse to place an IV without further chemical restraint so this was administered. Pertinent History/Illicit Drugs/Medications/Results: 27-year-old gentleman with psychosis presents for DCR LUISA and has been fighting with staff.
[2023-11-11] MEDS: SODIUM CHLORIDE 0.9% 1,000 ML IV STA ×2 (21:46→22:17)
[2023-11-11] MEDS: DIVALPROEX ER 250 MG TABLET PO SCH (21:49)
[2023-11-11] MEDS: OLANZapine ODT 5 MG TABLET TL SCH (21:49)
[2023-11-12] MEDS: LORazepam 2 MG/ML VIAL IVP STA ×2 (00:20→04:37)
--- NOTE | 2023-11-12 00:27 | ED Physician Documentation ---
ED Addendum - Addendum Addendum: 11/12/23 00:23 Received signout/turnover of care on this patient from Dr. Fernandez; please see his note for complete H&P. Early in my shift, starting at approximately 23: 20, I observed the patient was repeatedly moving his legs against the restraints. He was making purposeful movements otherwise and was speaking at times albeit inappropriate phrases; the observed behavior was not c/w seizure but rather appeared to be fighting against the four-point restraints. This behavior slowly but steadily increased and he was not responding to verbal requests to please stop fighting the restraints. I tried to explain to him that this would cause injury to his muscles which, in turn, could cause permanent damage to his kidneys. Thus, out of concern for this behavior to potentially worsen his rhabdomyolysis, he is administered 2 mg IV lorazepam for chemical sedation.
--- NOTE | 2023-11-12 00:39 | ED Physician Documentation ---
Restraint [id number] - Immediate Situation Face to Face Evaluation Date: 11/12/23 Face to Face Evaluation Time: 00:36 Restraint Classification: Violent, physical, chemical - Patient's Reaction & Behaviors Safety: Non-compliant Verbal: Demanding, Swearing Harm: Potential harm to self Physical: Fighting restraints - Behavioral Condition Attitude: Indifferent Attitude Comment: calling ED RN "bitch" and laughing repeatedly Behavior: Uncooperative, Belligerent Orientation: Disoriented to all (unable to ascertain orietation as he does not provide appropriate answers to questions) Mood: Angry - Evaluation Pertinent History/Illicit Drugs/Medications/Results: 27-year-old gentleman with psychosis presents for DCR LUISA and has been fighting with staff. - Plan Need to Initiate/Renew Violent or Chemical Restraint: needs to exhibit behavior and verbal responses that are consistent with ability to safely comply with treatment of his basic medical needs including mental health needs
[2023-11-12] MEDS: SODIUM CHLORIDE 0.9% 1,000 ML IV SCH (01:49)
[2023-11-12] MEDS: HALOPERIDOL 5 MG/ML VIAL IVP STA (04:36)
--- NOTE | 2023-11-12 05:02 | ED Physician Documentation ---
Restraint [id number] - Immediate Situation Face to Face Evaluation Date: 11/12/23 Face to Face Evaluation Time: 05:00 Restraint Classification: Violent, physical, chemical - Patient's Reaction & Behaviors Verbal: Demanding Other: Resting quietly - Behavioral Condition Attitude: Indifferent Behavior: Withdrawn Orientation: Non-responsive (does not answer orientation questions except with bizarre/unrelated statements ("I hate you son")) Mood: Labile - Evaluation Current Medical Condition Relating to Need for Restraint: psychosis Pertinent History/Illicit Drugs/Medications/Results: 27-year-old gentleman with psychosis presents for DCR LUISA and has been fighting with staff. - Plan Need to Initiate/Renew Violent or Chemical Restraint: can consider discontinuation of physical restraints if patient exhibits behaviors and language that is consistent with ability to participate in decision-making regarding his medical/mental health care as well as consistent with no longer being a danger to self and/or others
--- NOTE | 2023-11-12 07:24 | ED Physician Documentation ---
ED Addendum - Addendum Addendum: 11/12/23 07:21 Seen the patient on change of shift. He is in restraints at this time. He does pull out them periodically. He was getting blood draw as I was talking with him. He was cooperative for the blood draw but verbal even though he was holding still. He was offered breakfast and some fluids to drink and he accepted. We will start with that and see how he does for drinking fluids cooperatively and will give a morning dose of Zyprexa p.o. We are drawing for repeat BMP as well as creatinine kinase. His CK has been modestly elevated in the . He is a large person with a BMI of 51 but seems highly muscular in appearance. His baseline CK is probably above the no rmal testing range anyway. He has received IV fluids. He has been physically active with pulling at restraints reportedly overnight and did receive extra doses of medications. He had an IV in place so did not receive IM medicines overnight which should help with not compounding the CK blood level. We are assessing level of cooperativity. He is talking interactively with the nurses.
[2023-11-12] MEDS: OLANZapine ODT 5 MG TABLET TL STA (07:28)
[2023-11-12 07:41] LABS: CALCIUM 8.7 mg/dL (8.5-10.3); CREATININE 0.7 mg/dL (0.6-1.3); POTASSIUM 3.7 mmol/L (3.5-4.5)
--- NOTE | 2023-11-12 08:11 | ED Physician Documentation ---
Restraint [id number] - Immediate Situation Face to Face Evaluation Date: 11/12/23 Face to Face Evaluation Time: 08:09 Restraint Classification: Violent, physical - Patient's Reaction & Behaviors Safety: Physically safe Verbal: Asking for information - Behavioral Condition Attitude: Guarded Behavior: Cooperative Orientation: Person, Place Mood: Content - Evaluation Current Medical Condition Relating to Need for Restraint: He is conversant and cooperative. Had an arm released to drink fluids and take PO meds, which he did. Nursing feels comfortable with him. Restraints are removed and he is assisted bedside commode. Still has IV in place, and can give more IV fluids. Repeat CK is still modestly elevated for his size at 2523. No bump in creatinine, so no clinical effect of the CK elevation. At this point, removing restraints. Pertinent History/Illicit Drugs/Medications/Results: 27-year-old gentleman with psychosis presents for DCR LUISA and has been fighting with staff. - Plan Need to Initiate/Renew Violent or Chemical Restraint: removing rstraints at this time.
[2023-11-12] MEDS: SODIUM CHLORIDE 0.9% 1,000 ML IV STA ×3 (08:34→16:57)
--- NOTE | 2023-11-12 09:23 | PHARMACY PROGRESS NOTE ---
- Best Possible Medication History Admit Date and Time: Processed by: Pharmacy Medications reviewed in ED?: Yes Medication History completed: Yes Patient Interview: Pt unable to participate Secondary Source(s): Pharmacy records, Insurance records As the person ultimately responsible for medication therapy, providers are able to order a medication from an existing home medication list in [facility] via the "Reconcile Routine" prior to Confirmation of that medication by clerical support specialist. Such practice is discouraged except when the physician, in their clinical judgment, deems that a medical need exists for a medication without regard to previous use.
[2023-11-12] MEDS: LORazepam 1 MG TABLET PO STA ×2 (11:33→20:50)
[2023-11-12] MEDS: LACTATED RINGERS 2,000 ML IV STA (11:50)
--- NOTE | 2023-11-12 14:52 | ED Physician Documentation ---
ED Addendum - Addendum Addendum: 11/12/23 14:50 The patient has been out of restraints since this morning. He is directable. He does want to get out of bed to urinate often. He is amenable to being helped and doing at bedside with a urinal. He did get out of the room at 1 point and required redirecting back into the room but was able to follow consoling voice and verbal commands and redirection. The repeat CK done just at 2 PM is still elevated at 2400. 11/12/23 14:51
--- NOTE | 2023-11-12 17:15 | ED Physician Documentation ---
ED Addendum - Addendum Addendum: 11/12/23 17:15 Notified by the DCR at this time, Yaneth, that she is handing the patient's care over to Nikki. Potentially [facility] may take him. She is waiting for a call back on that. 11/12/23 18:50 He had just eloped from the emergency department. Walked out calmly. He only made it about 50 feet and was verbally redirected into the department. He was accompanied the entire time, no way he would have gotten a hold of any alcohol or drugs. He was cooperative and came back. On reevaluation he was stable without injuries and again he was observed the entire time he was out of the department and there was no trauma or fall. Code [place] had been called with resultant policy followed. 11/12/23 20:21 Notified at this time by Nikki the DCR that he is not being detained as there is no bed to detain 2. 11/12/23 21:23 He is much more cooperative now, but unfortunately he is now doing jumping jacks and sit hips. This will probably not help his rhabdomyolysis. 11/12/23 22:[address] Ortega at 11 PM shift change pending repeat CK in the morning.
[2023-11-12] MEDS: risperiDONE 1 MG TABLET PO STA (20:50)
[2023-11-13 05:28] LABS: CALCIUM 9.2 mg/dL (8.5-10.3); CREATININE 0.6 mg/dL (0.6-1.3); POTASSIUM 3.4 mmol/L (3.5-4.5)
[2023-11-13] MEDS: LORazepam 1 MG TABLET PO STA (15:07)
[2023-11-13 15:12] VITALS: BP 126/47; O2SAT 97
--- NOTE | 2023-11-13 18:05 | ED Physician Documentation ---
ED Addendum - Addendum Addendum: 11/13/23 17:53 The patient was signed out to me at change of shift, pending disposition after presenting to the emergency department with psychosis, erratic behavior, and agitation. He had also had an elevated CK, which he has had previously though not quite as high. He has been awaiting decrease in CK in the emergency department as a condition of acceptance at any psych facility. His CK had come down to 1800 from an initial high in the mid- by this morning. He had calm significantly after receiving Zyprexa regularly in the emergency department and as needed Ativan. The patient was ultimately accepted at [facility] and was agreeable to transfer without any resistance. The patient was continuing to make urine and had no complaints on transfer. Final impression: 1. Psychosis 2. Elevated CK Disposition: Transfer to [facility] in serious but stable condition. 11/13/23 18:06
== END 2023-11-13 17:55 ==
LOC: ED 16:28
DX: F29 Unspecified psychosis not due to a substance or known physiological condition (principal); R94.4 Abnormal results of kidney function studies; M62.82 Rhabdomyolysis; E78.00 Pure hypercholesterolemia, unspecified; F41.9 Anxiety disorder, unspecified; F31.9 Bipolar disorder, unspecified; Z79.899 Other long term (current) drug therapy; Z68.43 Body mass index [BMI] 50.0-59.9, adult
CPT/HCPCS: 36415; 80048; 80053; 80143; 80164; 80179; 80306; 81001; 82077; 82550; 83690; 83735; 84443; 85025; 87635; 93005; 96372; 96374; 96375; 99285; A9270; J2060; J7120; J8499; 81003; 87086

== ENCOUNTER 2023-12-23 09:48 | Outpatient (CLI) | payer MEDICAID | END 2023-12-23 23:59 | disposition critical access hospital (66) | LOC: EMS 09:48 | DX: Z04.6 Encounter for general psychiatric examination, requested by authority (principal); R45.851 Suicidal ideations; R45.850 Homicidal ideations; R45.6 Violent behavior; Z78.1 Physical restraint status | CPT/HCPCS: A0425; A0429; A0999 ==

== ENCOUNTER 2023-12-23 10:09 | Emergency (ER) | payer MEDICAID ==
--- NOTE | 2023-12-23 10:21 | ED Physician Documentation ---
PD HPI MHE - Stated complaint Stated Complaint: MHE - History obtained from History obtained from: Patient - History of Present Illness Primary symptom: Anxiety, Aggressive behavior Timing - onset: Today (The patient apparently got very anxious at work and was agitated and also having some delusions that the world was ending and everyone was going to from a nuclear event. Police were called but he apparently was more anxious with that. EMS stated the patient was cooperative with them.) Contributing factors: Family, Other (He states he has been taking his medicines regularly. His family members are triggers for him and he says it was some anxiety related to that.). 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 He states he has been regular with his current medication regimen.) Review of Systems Constitutional: denies: Fever, Chills Nose: denies: Rhinorrhea / runny nose, Congestion Throat: denies: Sore throat Respiratory: denies: Cough GI: denies: Vomiting, Diarrhea PD PAST MEDICAL HISTORY - Past Medical History Cardiovascular: High cholesterol Respiratory: None Endocrine/Autoimmune: None GI: None : None HEENT: None Psych: Depression, Anxiety, Bipolar disorder, Panic attacks, ADD/ADHD, Obsessive compulsive disorder Musculoskeletal: None Derm: None - Past Surgical History Past Surgical History: No - Present Medications Home Medications: Ambulatory Orders Medication Instructions Recorded Confirmed Divalproex [Hector Patel] 2,250 mg PO HS 11/12/23 12/18/23 Doxycycline [Vibramycin] 100 mg PO BID #14 tablet 12/18/23 Ezetimibe [Zetia] 10 mg PO QPM 12/18/23 12/18/23 Glipizide [Glipizide ER] 5 mg PO DAILY 12/18/23 12/18/23 hydrOXYzine HCL [Hydroxyzine HCl] 50 mg PO Q8HR PRN 12/18/23 12/18/23 metFORMIN [Glucophage] 500 mg PO BID 12/18/23 12/18/23 - Allergies Allergies/Adverse Reactions: Allergies Allergy/AdvReac Type Severity Reaction Status Date / Time amoxicillin [Amoxicillin] Allergy Severe Respiratory Verified 12/23/23 10:23 - Social History Does the pt smoke?: No Smoking Status: Never smoker Does the pt drink ETOH?: No Does the pt have substance abuse?: No - Immunizations Immunizations are current?: Yes - POLST Patient has POLST: No PD ED PE NORMAL - Vitals Vital signs reviewed: Yes - General General: Alert and oriented X 3, Well developed/nourished, Other (He arrives calm and cooperative by EMS. He does easily agitate but then will calm with verbal tone and offering of Gatorade or snack.) - Neck Neck: Supple, no meningeal sign, No adenopathy - Cardiac Cardiac: RRR, No murmur - Respiratory Respiratory: No respiratory distress, Clear bilaterally - Abdomen Abdomen: Soft, Non tender - Derm Derm: Normal color, Warm and dry - Neuro Neuro: Alert and oriented X 3, No motor deficit, Normal speech Results - Vitals Vitals: Vital Signs - 24 hr 12/23/23 12/23/23 12/23/23 10:13 14:50 15:35 Temperature 36.9 C 37.4 C Heart Rate 112 H 110 H Respiratory 18 24 20 Rate Blood Pressure 133/89 H 141/119 H O2 Saturation 97 100 Oxygen O2 Source Room air - Labs Labs: Laboratory Tests 12/23/23 12/23/23 12/23/23 11:13 11:13 11:13 WBC 11.9 H RBC 4.62 L Hgb 13.3 L Hct 41.1 L MCV 89.0 MCH 28.8 MCHC 32.4 RDW 11.9 L Plt Count 325 MPV 8.9 Neut # (Auto) 9.8 H Lymph # (Auto) 0.9 L [place] # (Auto) 0.9 Eos # (Auto) 0.1 Baso # (Auto) 0.1 Absolute Nucleated RBC 0.00 Nucleated RBC % 0.0 Sodium 134 L Potassium 4.2 Chloride 97 L Carbon Dioxide 29 Anion Gap 8.0 BUN 17 Creatinine 0.8 Estimated GFR (MDRD) 115 Glucose 279 H POC Whole Bld Glucose Calcium 9.5 Magnesium 1.6 L Total Bilirubin 0.3 AST 12 ALT 14 Alkaline Phosphatase 53 Total Creatine Kinase 273 H Total Protein 7.3 Albumin 4.0 Globulin 3.3 Albumin/Globulin Ratio 1.2 Lipase 31 TSH 1.79 Urine Color Urine Clarity Urine pH Ur Specific [place] Urine Protein Urine Glucose (UA) Urine Ketones Urine Occult Blood Urine Nitrite Urine Bilirubin Urine Urobilinogen Ur Leukocyte Esterase Ur Microscopic Review Urine Culture Comments Last Dose Date UNKNOWN Last Dose Time UNKNOWN Salicylates < 1.5 Urine Opiates Screen Ur Buprenorphine Scrn Ur Oxycodone Screen Urine Methadone Screen Acetaminophen < 0.1 Ur Barbiturates Screen Valproic Acid 81.7 Ur Tricyclics Screen Ur Phencyclidine Scrn Ur Amphetamine Screen U Methamphetamines Scrn U Benzodiazepines Scrn Urine Cocaine Screen U Cannabinoids Screen Ur Drug Screen Comment Ethyl Alcohol < 10.0 SARS-CoV-2 (PCR) 12/23/23 12/23/23 12/23/23 12:17 12:20 15:33 WBC RBC Hgb Hct MCV MCH MCHC RDW Plt Count MPV Neut # (Auto) Lymph # (Auto) [place] # (Auto) Eos # (Auto) Baso # (Auto) Absolute Nucleated RBC Nucleated RBC % Sodium Potassium Chloride Carbon Dioxide Anion Gap BUN Creatinine Estimated GFR (MDRD) Glucose POC Whole Bld Glucose 225 H Calcium Magnesium Total Bilirubin AST ALT Alkaline Phosphatase Total Creatine Kinase Total Protein Albumin Globulin Albumin/Globulin Ratio Lipase TSH Urine Color YELLOW Urine Clarity CLEAR Urine pH 7.0 Ur Specific [place] 1.020 Urine Protein TRACE Urine Glucose (UA) 500 H Urine Ketones NEGATIVE Urine Occult Blood NEGATIVE Urine Nitrite NEGATIVE Urine Bilirubin NEGATIVE Urine Urobilinogen 0.2 (NORMAL) Ur Leukocyte Esterase NEGATIVE Ur Microscopic Review NOT INDICATED Urine Culture Comments NOT INDICATED Last Dose Date Last Dose Time Salicylates Urine Opiates Screen NEGATIVE Ur Buprenorphine Scrn NEGATIVE Ur Oxycodone Screen NEGATIVE Urine Methadone Screen NEGATIVE Acetaminophen Ur Barbiturates Screen NEGATIVE Valproic Acid Ur Tricyclics Screen NEGATIVE Ur Phencyclidine Scrn NEGATIVE Ur Amphetamine Screen NEGATIVE U Methamphetamines Scrn NEGATIVE U Benzodiazepines Scrn POSITIVE H Urine Cocaine Screen NEGATIVE U Cannabinoids Screen NEGATIVE Ur Drug Screen Comment CUTOFF CONC BELOW: Ethyl Alcohol SARS-CoV-2 (PCR) DETECTED A PD Medical Decision Making - ED course Complexity details: reviewed results (Blood sugar is somewhat elevated in mid 200s. We can give him his usual daily oral medicines.), considered differential (The patient with history of bipolar disorder with psychotic features and paranoid delusions. Current is that a nuclear event is happening and every once going to . He does at times state he would hurt people but has not made any gestures.), d/w patient ED course: The patient was mostly chill and would smile at times if I made a soft joke. Otherwise he would just suddenly started screaming and yelling. He did not make any violent gestures towards anyone. He a couple of times did get out from the room and head towards the door and banging against it but then if we softly said please stop that and offer hand he would come back to the room. He did except oral medications. He had to be coaxed into getting blood drawn. He declined any IM medicines. He was cognizant of the fact that he was anxious and agitated and was actually initially requested Haldol medication and then was accepting of other medicines as well. He subsequently did become more relaxed and was now resting and sleeping. He did have an LR O and the DCR came in to evaluate the patient. It does sound like he had been taking his medicines and his Depakote level was in the therapeutic range. However he was having some and anger issue triggered apparently by his family or work this morning. As such and the patient acting as he is, the DCR, Bebe, felt that they would revoke his LR O. The patient was upset about that and did yell and scream for a minute or 2 but was staying in his bed and then calm and when I brought him a Gatorade. He did have issues of getting out of bed and wanting to elope several times and banged on the door to get out quite firmly but then consoled soon after so I did not feel that he needed restraining and was not appropriate as he was directable and I felt just the effect of sedative medicines would be useful. He was accepting of PO meds to help relax, as well as gatorade and snacks. He would flare angry yell at times. He was having short periods of paranoid thought of nuclear explosion about to happen and we were all going to . He also at times said he would kill all ofus by crushing our heads under his elbow, but then relaxed and smiled, chilled, when I replied "I don't think my would like you to do that to me, she likes me". We subsequently did repeat doses enough that he was more calm now. Departure - Departure Disposition: 65 Psych Hosp/Unit DC/Xfer Clinical Impression: Anxiety, Bipolar affective disorder Condition: Stable Record reviewed to determine appropriate education?: Yes
[2023-12-23 11:19] LABS: BASOPHILS # (AUTO) 0.1 10^3/uL (0.0-0.1); BASOPHILS % (AUTO) 0.5 %; EOSINOPHILS # (AUTO) 0.1 10^3/uL (0.0-0.7); EOSINOPHILS % (AUTO) 0.8 %; HCT - HEMATOCRIT 41.1 % (42.0-52.0); HGB - HEMOGLOBIN 13.3 g/dL (14.0-18.0); LYMPHOCYTES # (AUTO) 0.9 10^3/uL (1.5-3.5); LYMPHOCYTES % (AUTO) 7.7 %; MEAN CORPUSCULAR HEMOGLOBIN 28.8 pg (27.0-31.0); MEAN CORPUSCULAR HGB CONC 32.4 g/dL (32.0-36.0); MEAN PLATELET VOLUME 8.9 fL (7.4-11.4); MONOCYTES # (AUTO) 0.9 10^3/uL (0.0-1.0); MONOCYTES % (AUTO) 7.8 %; NEUTROPHILS # (AUTO) 9.8 10^3/uL (1.5-6.6); NEUTROPHILS % (AUTO) 82.7 %; PLT - PLATELET COUNT 325 10^3/uL (130-450); RED BLOOD COUNT 4.62 10^6/uL (4.70-6.10); RED CELL DISTRIBUTION WIDTH 11.9 % (12.0-15.0); WHITE BLOOD COUNT 11.9 x10^3/uL (4.8-10.8)
[2023-12-23 11:32] LABS: MAGNESIUM 1.6 mg/dL (1.7-2.3)
[2023-12-23 11:37] LABS: VALPROIC ACID (DEPAKOTE) 81.7 ug/mL
[2023-12-23 11:39] LABS: ALBUMIN/GLOBULIN RATIO 1.2 (1.0-2.2); ALKALINE PHOSPHATASE 53 IU/L (42-121); ALT ALANINE AMINOTRANSFERASE 14 IU/L (10-60); AST ASPARTATE AMINOTRANSFERASE 12 IU/L (10-42); BILIRUBIN,TOTAL 0.3 mg/dL (0.2-1.0); BUN - BLOOD UREA NITROGEN 17 mg/dL (6-20); CALCIUM 9.5 mg/dL (8.5-10.3); CARBON DIOXIDE - CO2 29 mmol/L (21-32); CHLORIDE 97 mmol/L (101-111); CK- CREATINE KINASE 273 IU/L (30-223); CREATININE 0.8 mg/dL (0.6-1.3); ETOH - ETHANOL < 10.0 mg/dL; GFR - MDRD 115 (>89); GLUCOSE 279 mg/dL (74-104); LIPASE 31 U/L (11-82); POTASSIUM 4.2 mmol/L (3.5-4.5); SODIUM 134 mmol/L (135-145); TOTAL PROTEIN 7.3 g/dL (6.4-8.9)
[2023-12-23 11:49] LABS: THYROID STIMULATING HORMONE 1.79 uIU/mL (0.34-5.60)
[2023-12-23 11:52] LABS: ACETAMINOPHEN < 0.1 ug/mL; SALICYLATE < 1.5 mg/dL
[2023-12-23] MEDS: haloperidoL 1 MG TABLET PO STA (11:55)
[2023-12-23 12:38] LABS: BILIRUBIN,URINE NEGATIVE (NEGATIVE); GLUCOSE, URINE (UA) 500 mg/dL (NEGATIVE); KETONES,URINE (UA) NEGATIVE (NEGATIVE); LEUKOCYTE ESTERASE, URINE NEGATIVE (NEGATIVE); NITRITE,URINE NEGATIVE (NEGATIVE); OCCULT BLOOD,URINE NEGATIVE (NEGATIVE); PROTEIN,URINE TRACE mg/dL (NEGATIVE); UROBILINOGEN,URINE 0.2 (NORMAL) E.U./dL (NORMAL)
[2023-12-23 12:39] LABS: CLARITY,URINE CLEAR (CLEAR)
[2023-12-23 12:46] LABS: AMPHETAMINE SCREEN,URINE NEGATIVE (NEGATIVE); BARBITURATE SCREEN,UR NEGATIVE (NEGATIVE); BENZODIAZEPINES SCREEN, URINE POSITIVE (NEGATIVE); BUPRENORPHINE SCREEN, URINE NEGATIVE (NEGATIVE); COCAINE SCREEN URINE NEGATIVE (NEGATIVE); METHADONE SCREEN, URINE NEGATIVE (NEGATIVE); METHAMPHETAMINES SCREEN, URINE NEGATIVE (NEGATIVE); OPIATE SCREEN, URINE NEGATIVE (NEGATIVE); OXYCODONE SCREEN, URINE NEGATIVE (NEGATIVE); THC CANNABINOID SCREEN, URINE NEGATIVE (NEGATIVE); TRICYCLIC ANTIDEPRESSANT,URINE NEGATIVE (NEGATIVE)
[2023-12-23] MEDS: OLANZapine ODT 5 MG TABLET TL ONE (13:11)
[2023-12-23] MEDS: LORazepam 1 MG TABLET PO STA (13:44)
[2023-12-23] MEDS: DIVALPROEX ER 250 MG TABLET PO STA (15:32)
[2023-12-23] MEDS: glipiZIDE 5 MG TABLET PO STA (15:32)
[2023-12-23] MEDS: metFORMIN 500 MG TABLET PO STA (15:32)
[2023-12-23 20:45] VITALS: BP 138/69; O2SAT 98
== END 2023-12-23 20:40 ==
LOC: EDUNIT# → ED 10:09
DX: F31.9 Bipolar disorder, unspecified (principal); F41.9 Anxiety disorder, unspecified; E78.00 Pure hypercholesterolemia, unspecified; Z79.899 Other long term (current) drug therapy; Z79.84 Long term (current) use of oral hypoglycemic drugs
CPT/HCPCS: 36415; 80053; 80143; 80164; 80179; 80306; 81003; 82077; 82550; 83690; 83735; 84443; 85025; 87635; 99285; A9270; J8499; 81001; 87086